=== PATIENT | male | born 1995 | race Caucasian/White ===

== ENCOUNTER 2022-01-08 23:09 | Emergency (ER) | payer MEDICAID | END 2022-01-09 00:52 | disposition home or self-care (01) | LOC: JP.ED 23:09 | DX: M62.830 Muscle spasm of back (principal) | CPT/HCPCS: 99283 ==

== ENCOUNTER 2023-10-09 07:52 | Emergency (ER) | payer MEDICAID, OTHER | END 2023-10-09 08:40 | disposition home or self-care (01) | LOC: JP.ED 07:52 | DX: S46.811A Strain of other muscles, fascia and tendons at shoulder and upper arm level, right arm, initial encounter (principal); M54.2 Cervicalgia; Z86.19 Personal history of other infectious and parasitic diseases; W19.XXXA Unspecified fall, initial encounter | CPT/HCPCS: 99283 ==